=== PATIENT | female | born 1970 | race Caucasian/White ===

== ENCOUNTER 2019-09-06 15:38 | Outpatient (CLI) | payer BC, SELFPAY ==
--- NOTE | 2019-09-06 16:10 | ECG_ITS ---
Measurements Intervals [place] Rate: 84 P: 58 W[place]: 143 QRS: -24 QRSD: 123 T: 30 QT: 373 QTc: 441 Interpretive Statements SINUS RHYTHM RSR' IN V1 OR V2, CONSIDER RIGHT VENTRICULAR HYPERTROPHY OR RIGHT VCD BORDERLINE ECG Electronically Signed On 09-06-2019 16:26:01 [employer] by Andres Dow D.O.
== END 2019-09-06 15:39 | disposition home or self-care (01) ==
LOC: ANHCARD 15:51
PROVIDERS: PCP Internal Medicine; Visit Provider Nurse Practitioner
DX: R06.02 Shortness of breath (principal)
CPT/HCPCS: 93005